=== PATIENT | female | born 1935 | race Caucasian/White ===

== ENCOUNTER 2016-09-15 10:01 | Outpatient (RCR) | payer MEDICARE, OTHER ==
[~2016-09-15] VITALS: Ht 152.4 cm; Wt 51.3 kg
[2016-09-15] MEDS ORDERED: NS FLUSH 3 ML PRN IV (10:05)
[2016-09-15] MEDS ORDERED: ZOLEDRONIC ACID 5 MG/100 ML 100 ML IV ONE (10:05)
[2016-09-15] MEDS ORDERED: NS FLUSH 10 ML PRN IV (10:05)
[2016-09-15 10:30] VITALS: BP 145/78
== END 2016-12-14 | disposition home or self-care (01) ==
PROVIDERS: ATTEND Family Medicine
DX: M81.0 Age-related osteoporosis without current pathological fracture (principal)
CPT/HCPCS: 96365; J3489; 36000